=== PATIENT | female | born 1990 | race Caucasian/White ===

== ENCOUNTER 2017-10-24 04:49 | Inpatient (IN) | payer BC ==
[2017-10-24] MEDS ORDERED: Butorphanol 1 MG/ML SDV IVPUSH PRN (05:28)
[2017-10-24] MEDS ORDERED: Tranexamic Acid 1,000 MG in Sodium Chloride 0.9% 100 ML IV PRN (05:28)
[2017-10-24] MEDS ORDERED: Misoprostol 200 MCG Tab PO PRN (05:28)
[2017-10-24] MEDS ORDERED: Lidocaine 1% 50 ML MDV INJECT PRN (05:28)
[2017-10-24] MEDS ORDERED: Sodium Chloride 0.9% 10 ML Syringe FLUSH PRN (05:28)
[2017-10-24] MEDS ORDERED: Nalbuphine 10 MG/1 ML Vial IVPUSH PRN (05:28)
[2017-10-24] MEDS ORDERED: Water For Irrigation,Sterile 1,000 ML Container IRR PRN (05:28)
[2017-10-24] MEDS ORDERED: Methylergonovine 0.2 MG/1 ML Amp IM PRN ×2 (05:28→06:31)
[2017-10-24] MEDS ORDERED: Sodium Chloride 0.9% 2.5 ML Syringe FLUSH PRN (05:28)
[2017-10-24] MEDS ORDERED: Carboprost Tromethamine 250 MCG/1 ML Amp IM PRN (05:28)
[2017-10-24] MEDS ORDERED: Oxytocin/0.9 % Sodium Chloride 30 UNIT/500 ML BAG IV SCH (05:30)
[2017-10-24] MEDS ORDERED: Lactated Ringers 1,000 ML IV SCH (05:30)
[2017-10-24] MEDS ORDERED: Bisacodyl 10 MG Supp RECTAL PRN (06:31)
[2017-10-24] MEDS ORDERED: Benzocaine/Menthol 20%-0.5% Spray 78 GM Cannister TOP PRN (06:31)
[2017-10-24] MEDS ORDERED: oxyCODONE 5 MG Tab PO PRN (06:31)
[2017-10-24] MEDS ORDERED: Lanolin 100% Cream 7 GM Tube TOP PRN (06:31)
[2017-10-24] MEDS ORDERED: Acetaminophen 500 MG Tab PO PRN ×2 (06:31)
[2017-10-24] MEDS ORDERED: Ibuprofen 400 MG Tab PO PRN (06:31)
[2017-10-24] MEDS ORDERED: Witch Hazel Medicated Pads 40/Jar TOP PRN (06:31)
--- NOTE | 2017-10-24 06:33 | PCM.DEL ---
L & D Note - General Info Date of Service: 10/24/17 Mother's Due Date: 10/22/17 - Delivery Note Labor: Spontaneous Delivery Outcome: Livebirth Infant Delivery Method: Spontaneous Vaginal Delivery-Single Delivery Mode: Spontaneous Presentation: Right Occiput Anterior (TOYA) Nuchal Cord: None Anesthesia Type: Pudendal Anesthetic: Lidocaine (Xylocaine) 1% Plain Local Anesthetic Volume: Other Amniotic Fluid Description: Clear (20 cc) Episiotomy Type: None Laceration: 2nd Degree Suture type: Vicryl Suture size: 3-0 Placenta: Intact, Spontaneous Cord: 3 Vessels Estimated Blood Loss: 300 Resuscitation Needed: No [place]: Stimulated, Warmed, [place] Used Provider: Staci Jiménez (Diego Petersen, MS4) Score 1 min: 8 Score 5 min: 9 Delivery Comments (Free Text/Narrative):: Viable female weighing 10 pounds, 5 ounces - General Info Date of Service: 10/24/17 Admission Dx/Problem (Free Text): 27 year old female at 40 weeks and 2 days gestation presents in active labor - Patient Data Weight - Most Recent: 230 lb Med Orders - Current: Current Medications Butorphanol Tartrate (Stadol) 1 mg IVPUSH Q1H PRN PRN Reason: Pain Carboprost Tromethamine (Hemabate Ds) 250 mcg IM ASDIRECTED PRN PRN Reason: Post Hemorrhage Lactated Ringer's (Ringers, Lactated) 1,000 mls @ 150 mls/hr IV ASDIRECTED [facility] Last Admin: 10/24/17 05:45 Dose: 999 mls/hr Oxytocin/Sodium Chloride (Oxytocin 30 Unit/500 Ml-Ns) 30 unit in 500 mls @ 999 mls/hr IV TITRATE [facility] Last Admin: 10/24/17 06:06 Dose: 999 mls/hr Tranexamic Acid 1,000 mg/ (Sodium Chloride) 110 mls @ 660 mls/hr IV ONETIME PRN PRN Reason: Bleeding Lidocaine HCl (Xylocaine 1%) 50 ml INJECT ONETIME PRN PRN Reason: Laceration repair Last Admin: 10/24/17 05:49 Dose: 50 ml Methylergonovine Maleate (Methergine) 0.2 mg IM ASDIRECTED PRN PRN Reason: Post Hemorrhage Misoprostol (Cytotec) 200 mcg PO ONETIME PRN PRN Reason: Post Hemorrhage Nalbuphine HCl (Nubain) 10 mg IVPUSH Q1H PRN PRN Reason: Pain (severe 7-10) Sodium Chloride (Saline Flush) 10 ml FLUSH ASDIRECTED PRN PRN Reason: Keep Vein Open Sodium Chloride (Saline Flush) 2.5 ml FLUSH ASDIRECTED PRN PRN Reason: Keep Vein Open Sterile Water (Sterile Water For Irrigation) 1,000 ml IRR ASDIRECTED PRN PRN Reason: delivery Last Admin: 10/24/17 05:49 Dose: 1,000 ml - Problem List Review Problem List Initiated/Reviewed/Updated: Yes
--- NOTE | 2017-10-24 07:15 | OR ---
SURGEON: Staci Jiménez M.D. DATE OF PROCEDURE: 10/24/2017 PREOPERATIVE DIAGNOSIS: A 40 and 2/7 weeks' intrauterine , active spontaneous labor, group B streptococcus negative, category 1 heart tones. POSTOPERATIVE DIAGNOSIS: A 40 and 2/7 weeks' intrauterine , active spontaneous labor, group B streptococcus negative, category 1 heart tones. PROCEDURE PERFORMED: Term spontaneous vaginal delivery with repair of second-degree perineal laceration. ANESTHESIA: Pudendal. ESTIMATED BLOOD LOSS: Less than 300 mL. FINDINGS: Live born female, score 8 and 9, weighing 4670 g, second-degree perineal laceration. Placenta spontaneous, Schultze intact. COMPLICATIONS: None known. DISPOSITION: Mother and baby in LDRP in good condition. BRIEF HISTORY: This is a 27-year-old female. She is G3, P2 with a history of prior macrosomic deliveries. She has had an uncomplicated care. She presents in active spontaneous labor, 6 to 7 cm dilated, category 1 heart tones. She progressed to complete. She did request a pudendal block. DESCRIPTION OF PROCEDURE: With the patient in dorsal lithotomy position, the perineum was cleansed. Pudendal block was performed using 10 mL of 1% lidocaine placed 1 cm medial and inferior to the spinous process on the right and the left. With this, she had good perineal analgesia. She then began to push. After artificial rupture of membranes was performed, clear fluid noted, she pushed over a 15-minute time period to a 5+ station, at which time the head was delivered spontaneously and atraumatically over the perineum with support with subsequent delivery of the infant's shoulders and body without any difficulty. The infant was bulb suctioned by nose and mouth. The cord was clamped x2 and cut after it had ceased to pulsate and the was handed to the mother in the presence of the nurse attending delivery. The was a liveborn female, score 8 and 9, weighing 4670 g. Cord blood was collected for cord ABGs as well as routine cord blood sampling. Pitocin was initiated after delivery of the to assist with delivery of the placenta, which was delivered spontaneously. Schultze intact with 3 vessels. Upon inspection of the pelvis and perineum, there was a midline second-degree perineal laceration. There were no periurethral, vaginal sidewall, cervical, or rectal lacerations. EBL was less than 300 mL. The laceration was repaired using additional 10 mL of 1% lidocaine and then utilizing a 3-0 Vicryl with a running locked stitch over the vaginal mucosa, a deep running suture on the perineum using the same suture and a running subcuticular suture for the skin. Final sponge, needle, and instrument count were correct. There were no known complications. Mother and baby are in LDRP in good condition. MALLORIE VINES /[id number]
[2017-10-24] MEDS: Ibuprofen 800 MG Tab PO PRN ×3 (08:24→21:27)
[2017-10-24] MEDS: Docusate Sodium 100 MG Cap PO PRN ×2 (08:24→21:27)
[2017-10-25] MEDS: Ibuprofen 800 MG Tab PO PRN ×3 (07:35→20:16)
[2017-10-25] MEDS: Docusate Sodium 100 MG Cap PO PRN ×2 (07:37→20:16)
--- NOTE | 2017-10-25 08:17 | PCM.PNPP ---
<Keyla Kang - Last Filed: 10/25/17 08:15> - General Info Date of Service: 10/25/17 Functional Status: Reports: Pain Controlled, Tolerating Diet, Ambulating, Urinating - Review of Systems General: Denies: Fever, Weakness, Fatigue Pulmonary: Denies: Shortness of Breath, Pleuritic Chest Pain, Cough Cardiovascular: Denies: Chest Pain, Palpitations, Dyspnea on Exertion Gastrointestinal: Denies: Abdominal Pain Genitourinary: Denies: Dysuria - General Info Date of Service: 10/25/17 - Patient Data Vital Signs - Most Recent: Last Vital Signs Temp 36.6 C 10/25/17 07:46 Pulse 81 10/25/17 07:46 Resp 14 10/25/17 07:46 BP 118/58 L 10/25/17 07:46 Pulse Ox 95 10/25/17 07:46 Weight - Most Recent: 104.326 kg Lab Results - Last 24 Hours: Laboratory Results - last 24 hr 10/25/17 Range/Units 05:08 Hgb 12.6 (12.0-16.0) g/dL Hct 37.1 (36.0-46.0) % Med Orders - Current: Current Medications Acetaminophen (Tylenol Extra Strength) 500 mg PO Q4H PRN PRN Reason: Pain Acetaminophen (Tylenol Extra Strength) 1,000 mg PO Q4H PRN PRN Reason: Pain Benzocaine/Menthol (Dermoplast Pain Relief 20%-0.5% [place]) 78 gm TOP ASDIRECTED PRN PRN Reason: Perineal Comfort Measure Last Admin: 10/24/17 07:28 Dose: 1 canister Bisacodyl (Dulcolax) 10 mg RECTAL ONETIME PRN PRN Reason: Constipation Docusate Sodium (Colace) 100 mg PO BID PRN PRN Reason: Constipation Last Admin: 10/25/17 07:37 Dose: 100 mg Emollient Ointment (Lansinoh Hpa) 0 gm TOP ASDIRECTED PRN PRN Reason: Sore Nipples Last Admin: 10/25/17 07:40 Dose: 1 applic Ibuprofen (Motrin) 400 mg PO Q4H PRN PRN Reason: Pain Ibuprofen (Motrin) 800 mg PO Q6H PRN PRN Reason: Pain Last Admin: 10/25/17 07:35 Dose: 800 mg Methylergonovine Maleate (Methergine) 0.2 mg IM ONETIME PRN PRN Reason: Excessive Vaginal Bleeding Oxycodone HCl (Oxycodone) 5 mg PO Q2H PRN PRN Reason: Pain Witch Anh (Tucks) 1 pad TOP ASDIRECTED PRN PRN Reason: comfort care Last Admin: 10/24/17 07:27 Dose: 1 tub Discontinued Medications Butorphanol Tartrate (Stadol) 1 mg IVPUSH Q1H PRN PRN Reason: Pain Carboprost Tromethamine (Hemabate Ds) 250 mcg IM ASDIRECTED PRN PRN Reason: Post Hemorrhage Lactated Ringer's (Ringers, Lactated) 1,000 mls @ 150 mls/hr IV ASDIRECTED [facility] Last Admin: 10/24/17 05:45 Dose: 999 mls/hr Oxytocin/Sodium Chloride (Oxytocin 30 Unit/500 Ml-Ns) 30 unit in 500 mls @ 999 mls/hr IV TITRATE [facility] Last Admin: 10/24/17 06:06 Dose: 999 mls/hr Tranexamic Acid 1,000 mg/ (Sodium Chloride) 110 mls @ 660 mls/hr IV ONETIME PRN PRN Reason: Bleeding Lidocaine HCl (Xylocaine 1%) 50 ml INJECT ONETIME PRN PRN Reason: Laceration repair Last Admin: 10/24/17 05:49 Dose: 50 ml Methylergonovine Maleate (Methergine) 0.2 mg IM ASDIRECTED PRN PRN Reason: Post Hemorrhage Misoprostol (Cytotec) 200 mcg PO ONETIME PRN PRN Reason: Post Hemorrhage Nalbuphine HCl (Nubain) 10 mg IVPUSH Q1H PRN PRN Reason: Pain (severe 7-10) Sodium Chloride (Saline Flush) 10 ml FLUSH ASDIRECTED PRN PRN Reason: Keep Vein Open Sodium Chloride (Saline Flush) 2.5 ml FLUSH ASDIRECTED PRN PRN Reason: Keep Vein Open Sterile Water (Sterile Water For Irrigation) 1,000 ml IRR ASDIRECTED PRN PRN Reason: delivery Last Admin: 10/24/17 05:49 Dose: 1,000 ml - Interaction Disposition, : [place] in Room with Family Infant Interaction: Holding Infant Feeding: Breastfed ; Nursed Well Support Person: , Mother, Sister - Recovery Exam Fundal Tone: Firm Fundal Level: 1 Fingerbreadths Below Umbilicus Fundal Placement: Midline Lochia Amount: Scant Lochia Color: Rubra/Red Perineum Description: Other (see below) Other Perinuem Description: 2nd deg laceration Episiotomy/Laceration: Approximated Bladder Status: Nonpalpable, Voiding Urinary Elimination: Voided - Exam General: Alert, Oriented Neck: Supple Lungs: Clear to Auscultation, Normal Respiratory Effort Cardiovascular: Regular Rate, Regular Rhythm GI/Abdominal Exam: Normal Bowel Sounds, Soft, Non-Tender, No Distention Extremities: Normal Inspection, Normal Capillary Refill, Pedal Edema (trace) Skin: Warm, Dry, Intact - Problem List & Annotations (1) Vaginal delivery SNOMED Code(s): 357900633 Code(s): O80 - ENCOUNTER FOR FULL-TERM UNCOMPLICATED DELIVERY Status: Acute Current Visit: No - Problem List Review Problem List Initiated/Reviewed/Updated: Yes - Assessment Assessment:: PPD #1 s/p . Minimal pain and lochia. Breast feeding well. Discharge home today. - Plan Plan:: Discharge home today. Pelvic rest for 6 weeks. Continue PNV while breast feeding. Can use OTC ibuprofen/tylenol as needed for pain. Instructed patient to call if she develops fever greater than 101 or bleeding through a large pad an hour. F/U with [facility] in 6 weeks. <Vanessa Dunham - Last Filed: 10/25/17 08:42> - Patient Data Vital Signs - Most Recent: Last Vital Signs Temp 36.6 C 10/25/17 07:46 Pulse 81 10/25/17 07:46 Resp 14 10/25/17 07:46 BP 118/58 L 10/25/17 07:46 Pulse Ox 95 10/25/17 07:46 Lab Results - Last 24 Hours: Laboratory Results - last 24 hr 10/25/17 Range/Units 05:08 Hgb 12.6 (12.0-16.0) g/dL Hct 37.1 (36.0-46.0) % Med Orders - Current: Current Medications Acetaminophen (Tylenol Extra Strength) 500 mg PO Q4H PRN PRN Reason: Pain Acetaminophen (Tylenol Extra Strength) 1,000 mg PO Q4H PRN PRN Reason: Pain Benzocaine/Menthol (Dermoplast Pain Relief 20%-0.5% [place]) 78 gm TOP ASDIRECTED PRN PRN Reason: Perineal Comfort Measure Last Admin: 10/24/17 07:28 Dose: 1 canister Bisacodyl (Dulcolax) 10 mg RECTAL ONETIME PRN PRN Reason: Constipation Docusate Sodium (Colace) 100 mg PO BID PRN PRN Reason: Constipation Last Admin: 10/25/17 07:37 Dose: 100 mg Emollient Ointment (Lansinoh Hpa) 0 gm TOP ASDIRECTED PRN PRN Reason: Sore Nipples Last Admin: 10/25/17 07:40 Dose: 1 applic Ibuprofen (Motrin) 400 mg PO Q4H PRN PRN Reason: Pain Ibuprofen (Motrin) 800 mg PO Q6H PRN PRN Reason: Pain Last Admin: 10/25/17 07:35 Dose: 800 mg Methylergonovine Maleate (Methergine) 0.2 mg IM ONETIME PRN PRN Reason: Excessive Vaginal Bleeding Oxycodone HCl (Oxycodone) 5 mg PO Q2H PRN PRN Reason: Pain Witch Anh (Tucks) 1 pad TOP ASDIRECTED PRN PRN Reason: comfort care Last Admin: 10/24/17 07:27 Dose: 1 tub Discontinued Medications Butorphanol Tartrate (Stadol) 1 mg IVPUSH Q1H PRN PRN Reason: Pain Carboprost Tromethamine (Hemabate Ds) 250 mcg IM ASDIRECTED PRN PRN Reason: Post Hemorrhage Lactated Ringer's (Ringers, Lactated) 1,000 mls @ 150 mls/hr IV ASDIRECTED [facility] Last Admin: 10/24/17 05:45 Dose: 999 mls/hr Oxytocin/Sodium Chloride (Oxytocin 30 Unit/500 Ml-Ns) 30 unit in 500 mls @ 999 mls/hr IV TITRATE [facility] Last Admin: 10/24/17 06:06 Dose: 999 mls/hr Tranexamic Acid 1,000 mg/ (Sodium Chloride) 110 mls @ 660 mls/hr IV ONETIME PRN PRN Reason: Bleeding Lidocaine HCl (Xylocaine 1%) 50 ml INJECT ONETIME PRN PRN Reason: Laceration repair Last Admin: 10/24/17 05:49 Dose: 50 ml Methylergonovine Maleate (Methergine) 0.2 mg IM ASDIRECTED PRN PRN Reason: Post Hemorrhage Misoprostol (Cytotec) 200 mcg PO ONETIME PRN PRN Reason: Post Hemorrhage Nalbuphine HCl (Nubain) 10 mg IVPUSH Q1H PRN PRN Reason: Pain (severe 7-10) Sodium Chloride (Saline Flush) 10 ml FLUSH ASDIRECTED PRN PRN Reason: Keep Vein Open Sodium Chloride (Saline Flush) 2.5 ml FLUSH ASDIRECTED PRN PRN Reason: Keep Vein Open Sterile Water (Sterile Water For Irrigation) 1,000 ml IRR ASDIRECTED PRN PRN Reason: delivery Last Admin: 10/24/17 05:49 Dose: 1,000 ml - Plan Plan:: Patient seen and examined--after discussion, patient does want to stay today and work with . Plan discharge tomorrow. Reassurance provided, continue PP cares.
[2017-10-26] MEDS: Ibuprofen 800 MG Tab PO PRN (05:20)
[2017-10-26] MEDS ORDERED: Measles, Mumps & Rubella Vaccine 0.5 ML SDV SUBCUT ONE (08:48)
--- NOTE | 2017-10-26 08:48 | PCM.PNPP ---
- General Info Date of Service: 10/26/17 Functional Status: Reports: Pain Controlled, Tolerating Diet, Ambulating, Urinating - Review of Systems General: Denies: Fever HEENT: Denies: Headaches Pulmonary: Denies: Shortness of Breath, Pleuritic Chest Pain Cardiovascular: Denies: Chest Pain, Palpitations, Lightheadedness Gastrointestinal: Reports: [place]. Denies: Nausea, Vomiting Genitourinary: Denies: Flank Pain Skin: Reports: No Symptoms Psychiatric: Reports: No Symptoms - General Info Date of Service: 10/26/17 - Patient Data Vital Signs - Most Recent: Last Vital Signs Temp 36.9 C 10/26/17 06:00 Pulse 68 10/26/17 06:00 Resp 18 10/26/17 06:00 BP 107/59 L 10/26/17 06:00 Pulse Ox 94 L 10/26/17 06:00 Weight - Most Recent: 104.326 kg Med Orders - Current: Current Medications Acetaminophen (Tylenol Extra Strength) 500 mg PO Q4H PRN PRN Reason: Pain Acetaminophen (Tylenol Extra Strength) 1,000 mg PO Q4H PRN PRN Reason: Pain Benzocaine/Menthol (Dermoplast Pain Relief 20%-0.5% [place]) 78 gm TOP ASDIRECTED PRN PRN Reason: Perineal Comfort Measure Last Admin: 10/24/17 07:28 Dose: 1 canister Bisacodyl (Dulcolax) 10 mg RECTAL ONETIME PRN PRN Reason: Constipation Docusate Sodium (Colace) 100 mg PO BID PRN PRN Reason: Constipation Last Admin: 10/25/17 20:16 Dose: 100 mg Emollient Ointment (Lansinoh Hpa) 0 gm TOP ASDIRECTED PRN PRN Reason: Sore Nipples Last Admin: 10/25/17 07:40 Dose: 1 applic Ibuprofen (Motrin) 400 mg PO Q4H PRN PRN Reason: Pain Ibuprofen (Motrin) 800 mg PO Q6H PRN PRN Reason: Pain Last Admin: 10/26/17 05:20 Dose: 800 mg Methylergonovine Maleate (Methergine) 0.2 mg IM ONETIME PRN PRN Reason: Excessive Vaginal Bleeding Oxycodone HCl (Oxycodone) 5 mg PO Q2H PRN PRN Reason: Pain Witch Anh (Tucks) 1 pad TOP ASDIRECTED PRN PRN Reason: comfort care Last Admin: 10/24/17 07:27 Dose: 1 tub Discontinued Medications Butorphanol Tartrate (Stadol) 1 mg IVPUSH Q1H PRN PRN Reason: Pain Carboprost Tromethamine (Hemabate Ds) 250 mcg IM ASDIRECTED PRN PRN Reason: Post Hemorrhage Lactated Ringer's (Ringers, Lactated) 1,000 mls @ 150 mls/hr IV ASDIRECTED [facility] Last Admin: 10/24/17 05:45 Dose: 999 mls/hr Oxytocin/Sodium Chloride (Oxytocin 30 Unit/500 Ml-Ns) 30 unit in 500 mls @ 999 mls/hr IV TITRATE [facility] Last Admin: 10/24/17 06:06 Dose: 999 mls/hr Tranexamic Acid 1,000 mg/ (Sodium Chloride) 110 mls @ 660 mls/hr IV ONETIME PRN PRN Reason: Bleeding Lidocaine HCl (Xylocaine 1%) 50 ml INJECT ONETIME PRN PRN Reason: Laceration repair Last Admin: 10/24/17 05:49 Dose: 50 ml Methylergonovine Maleate (Methergine) 0.2 mg IM ASDIRECTED PRN PRN Reason: Post Hemorrhage Misoprostol (Cytotec) 200 mcg PO ONETIME PRN PRN Reason: Post Hemorrhage Nalbuphine HCl (Nubain) 10 mg IVPUSH Q1H PRN PRN Reason: Pain (severe 7-10) Sodium Chloride (Saline Flush) 10 ml FLUSH ASDIRECTED PRN PRN Reason: Keep Vein Open Sodium Chloride (Saline Flush) 2.5 ml FLUSH ASDIRECTED PRN PRN Reason: Keep Vein Open Sterile Water (Sterile Water For Irrigation) 1,000 ml IRR ASDIRECTED PRN PRN Reason: delivery Last Admin: 10/24/17 05:49 Dose: 1,000 ml - Infant Interaction Disposition, : in Room with Family Infant Interaction: Holding Infant Feeding: Breastfed Infant; Nursed Well Support Person: , Mother, Sister - Recovery Exam Fundal Tone: Firm Fundal Level: At Umbilicus Fundal Placement: Midline Lochia Amount: Scant, Small Lochia Color: Rubra/Red Perineum Description: Other (see below) Other Perinuem Description: 2nd laceration Episiotomy/Laceration: Approximated Bladder Status: Voiding Urinary Elimination: Voided - Exam General: Alert, Oriented Lungs: Normal Respiratory Effort Cardiovascular: Regular Rate, Regular Rhythm Extremities: Normal Inspection. No: Anant's Sign Skin: Warm, Dry, Intact Psy/Mental Status: Alert, Normal Affect - Problem List & Annotations (1) Vaginal delivery SNOMED Code(s): 567059910 Code(s): O80 - ENCOUNTER FOR FULL-TERM UNCOMPLICATED DELIVERY Status: Acute Current Visit: No - Problem List Review Problem List Initiated/Reviewed/Updated: Yes - Assessment Assessment:: PPD #2 s/p . Minimal pain and lochia. Breast feeding well. Discharge home today. - Plan Plan:: Discharge instructions reviewed. [facility] weeks. Infection, bleeding and PP depression warnings reviewed. Discharge to home today.
[2017-10-26] MEDS: Docusate Sodium 100 MG Cap PO PRN (08:50)
[2017-10-26 09:27] VITALS: BP 108/62
== END 2017-10-26 11:30 | disposition home or self-care (01) | DRG 560 ==
LOC: MW.OBCHECK 04:49 → MW.OB 04:50 → MW.OBCHECK 05:29 → MW.OB 05:29 → OBSVTOIN 06:03
PROVIDERS: ADMIT Obstetrics & Gynecology; ATTEND Obstetrics & Gynecology
PROC: 10E0XZZ Delivery of Products of Conception, External Approach (ICD-10-PCS; principal; 2017-10-24)
PROC: 10907ZC Drainage of Amniotic Fluid, Therapeutic from Products of Conception, Via Natural or Artificial Opening (ICD-10-PCS; 2017-10-24)
DX: O70.1 Second degree perineal laceration during delivery (principal); Z3A.40 40 weeks gestation of pregnancy; Z37.0 Single live birth
CPT/HCPCS: 36415; 59025; 59409; 82803; 85014; 85018; 85027; 86850; 86900; 86901; 90471; 90707; A9270-GY; J2590; J7120

== ENCOUNTER 2021-08-11 22:49 | Inpatient (IN) | payer BC ==
[2021-08-11] MEDS ORDERED: Sodium Chloride 0.9% 10 ML Syringe FLUSH PRN (22:54)
[2021-08-11] MEDS ORDERED: Tranexamic Acid 1,000 MG in Sodium Chloride 0.9% 100 ML IV PRN (22:54)
[2021-08-11] MEDS ORDERED: Sodium Chloride 0.9% 20 ML SDV IV PRN (22:54)
[2021-08-11] MEDS ORDERED: Misoprostol 200 MCG Tab PO PRN (22:54)
[2021-08-11] MEDS ORDERED: Water For Irrigation,Sterile 1,000 ML Container IRR PRN (22:54)
[2021-08-11] MEDS ORDERED: Sodium Chloride 0.9% 2.5 ML Syringe FLUSH PRN (22:54)
[2021-08-11] MEDS ORDERED: Lidocaine 1% 50 ML MDV INJECT PRN (22:54)
[2021-08-11] MEDS ORDERED: Butorphanol 1 MG/ML SDV IVPUSH PRN (22:54)
[2021-08-11] MEDS ORDERED: Methylergonovine 0.2 MG/1 ML Amp IM PRN (22:54)
[2021-08-11] MEDS ORDERED: Carboprost Tromethamine 250 MCG/1 ML Amp IM PRN (22:54)
[2021-08-11] MEDS ORDERED: Oxytocin/0.9 % Sodium Chloride 30 UNIT/500 ML BAG IV SCH (23:00)
[2021-08-11] MEDS ORDERED: Lactated Ringers 1,000 ML IV SCH (23:00)
[2021-08-12] MEDS ORDERED: Acetaminophen 500 MG Tab PO PRN ×2 (00:07)
[2021-08-12] MEDS ORDERED: Lanolin 100% Cream 7 GM Tube TOP PRN (00:07)
[2021-08-12] MEDS ORDERED: Tranexamic Acid 1,000 MG in Sodium Chloride 0.9% 100 ML IV PRN (00:07)
[2021-08-12] MEDS ORDERED: Ibuprofen 400 MG Tab PO PRN (00:07)
[2021-08-12] MEDS ORDERED: Benzocaine/Menthol 20%-0.5% Spray 78 GM Cannister TOP PRN (00:07)
[2021-08-12] MEDS ORDERED: Methylergonovine 0.2 MG/1 ML Amp IM PRN (00:07)
[2021-08-12] MEDS ORDERED: Bisacodyl 10 MG Supp RECTAL PRN (00:07)
[2021-08-12] MEDS ORDERED: Witch Hazel Medicated Pads 40/Jar TOP PRN (00:07)
[2021-08-12] MEDS: Ibuprofen 800 MG Tab PO PRN ×3 (00:52→18:07)
[2021-08-12] MEDS: Docusate Sodium 100 MG Cap PO PRN ×2 (10:03→21:32)
[2021-08-13] MEDS: Ibuprofen 800 MG Tab PO PRN ×2 (01:40→09:08)
[2021-08-13 07:27] VITALS: BP 112/58; PULSE 61
[2021-08-13] MEDS: Docusate Sodium 100 MG Cap PO PRN (10:39)
== END 2021-08-13 13:45 | disposition home or self-care (01) | DRG 560 ==
LOC: MW.OBCHECK 22:49 → MW.OB 22:50 → MW.OBCHECK 22:53 → MW.OB 22:54 → OBSVTOIN 23:26 → MW.OB 08-12 02:34
PROVIDERS: ADMIT Obstetrics & Gynecology; ATTEND Obstetrics & Gynecology
PROC: 10E0XZZ Delivery of Products of Conception, External Approach (ICD-10-PCS; principal; 2021-08-11)
PROC: 10907ZC Drainage of Amniotic Fluid, Therapeutic from Products of Conception, Via Natural or Artificial Opening (ICD-10-PCS; 2021-08-11)
PROC: 0KQM0ZZ Repair Perineum Muscle, Open Approach (ICD-10-PCS; 2021-08-11)
DX: O70.1 Second degree perineal laceration during delivery (principal); Z3A.39 39 weeks gestation of pregnancy; Z37.0 Single live birth; Z20.822 Contact with and (suspected) exposure to COVID-19
CPT/HCPCS: 36415; 59025; 59409; 82803; 85014; 85018; 85027; 86592; 86850; 86900; 86901; A9270-GY; J2001; J2590; J7120; U0002